=== PATIENT | female | born 1955 | race American Indian/Alaskan Native ===

== ENCOUNTER 2016-09-03 19:12 | Emergency (ER) | payer MEDICAID ==
[2016-09-03 19:40] VITALS: BMI 16.8
[2016-09-03] MEDS ORDERED: Albuterol-Ipratrop 3 mg / 0.5 (3 ml) UD IH STA ×2 (20:01→21:37)
--- NOTE | 2016-09-03 20:06 | ED PDOC ---
Arrival/HPI - General Chief Complaint: Shortness Of Breath Time Seen by Provider: 09/03/16 19:40 Historian: Patient - History of Present Illness Narrative History of Present Illness (Text): 09/03/16 20:04 60 year old female whose past medical history includes COPD, lupus, HIV, presents to the emergency department with difficulty breathing, shortness of breath, since earlier today. Patient states she has been using her nebulizer treatments with no improvement. Denies chest pain. No known fever or chills. Time/Duration: 24 hours Symptom Onset: Gradual Symptom Course: Unchanged Modifying Factors (Text): None Past Medical History - Provider Review Nursing Documentation Reviewed: Yes - Cardiac Hx Cardiac Disorders: No - Pulmonary Hx Respiratory Disorders: Yes Hx Asthma: Yes Hx Bronchitis: Yes Hx Chronic Obstructive Pulmonary Disease (COPD): Yes - HEENT Hx HEENT Disorder: No - Renal Hx Renal Disorder: No - Endocrine/Metabolic Hx Endocrine Disorders: No Hx Systemic Lupus Erythematosus: Yes - Musculoskeletal/Rheumatological Hx Musculoskeletal Disorders: No - Gastrointestinal Hx Gastrointestinal Disorders: No - Psychiatric Hx Substance Use: Yes - Surgical History Hx Cholecystectomy: Yes Family/Social History - Physician Review Nursing Documentation Reviewed: Yes Family/Social History: Unknown Family HX Smoking Status: Heavy Smoker > 10 Cigarettes Daily Hx Alcohol Use: Yes Frequency of alcohol use: Daily Hx Substance Use: Yes Substance used: Marijuana Allergies/Home Meds Allergies/Adverse Reactions: Allergies No Known Allergies Allergy (Verified 09/03/16 19:40) Review of Systems - Physician Review All systems were reviewed & negative as marked: Yes - Review of Systems Constitutional: Other (No chills). absent: Fevers Respiratory: SOB Cardiovascular: absent: Chest Pain Physical Exam Vital Signs Reviewed: Yes Vital Signs Temp Pulse Resp BP Pulse Ox 09/03/16 21:41 97.8 F 89 17 121/73 97 09/03/16 19:41 98.6 F 85 16 113/68 100 09/03/16 19:13 98.6 F 85 16 113/68 100 Temperature: Afebrile Blood Pressure: Normal Pulse: Regular Respiratory Rate: Normal Appearance: Positive for: Well-Appearing, Non-Toxic, Comfortable Pain Distress: None Mental Status: Positive for: Alert and Oriented X 3 - Systems Exam Head: Present: Atraumatic, Normocephalic Pupils: Present: PERRL Extroacular Muscles: Present: EOMI Conjunctiva: Present: Normal Mouth: Present: Moist Mucous Membranes Neck: Present: Normal Range of Motion Respiratory/Chest: Present: Good Air Exchange, Wheezes, Decreased Breath Sounds. No: Respiratory Distress, Accessory Muscle Use Cardiovascular: Present: Regular Rate and Rhythm, Normal S1, S2. No: Murmurs Abdomen: Present: Normal Bowel Sounds. No: Tenderness, Distention, Peritoneal Signs Back: Present: Normal Inspection Upper Extremity: Present: Normal Inspection. No: Cyanosis, Edema Lower Extremity: Present: Normal Inspection. No: Edema Neurological: Present: GCS=15, CN II-XII Intact, Speech Normal Skin: Present: Warm, Dry, Normal Color. No: Rashes Psychiatric: Present: Alert, Oriented x 3, Normal Insight, Normal Concentration Medical Decision Making ED Course and Treatment: Impression: 60 year old female whose past medical history includes COPD, lupus, HIV, presents to the emergency department with difficulty breathing, shortness of breath, since earlier today. Differential Diagnosis included but are not limited to: Plan: -- EKG, CXR -- Duoneb, Solumedrol -- Labs -- Reassess and disposition Progress Notes: 09/03/16 21:48 EKG interpreted by me: NSR @ [address] bpm[address] Non-specific ST/T changes. 09/03/16 22:39 Chest X-ray interpreted by me: No acute process. 09/03/16 22:57 On re-evaluation, patient states that her breathing has improved markedly and is in no acute distress. I have discussed the results and plan with the patient , who expresses understanding. Patient in agreement with plan to be discharged home. Patient is stable for discharge. Patient was instructed to follow up with physician or return if symptoms worsen or new concerning symptoms arise. - Lab Interpretations Lab Results: 09/03/16 20:52 09/03/16 20:52 Lab Results 09/03/16 20:52: WBC 8.8, RBC 3.33 L, Hgb 10.8 L, Hct 32.6 L, MCV 97.9, MCH 32.4 , MCHC 33.1, RDW 15.5 H, Plt Count 431, MPV 9.0 09/03/16 20:52: Sodium 143, Potassium 3.8, Chloride 109 H, Carbon Dioxide 24, Anion Gap 14, BUN 6 L, Creatinine 0.7, Est GFR ( Amer) > 60, Est GFR (Non -Af Amer) > 60, Random Glucose 97, Calcium 9.4, Total Bilirubin 0.3, AST 44 H, ALT 29, Alkaline Phosphatase 183 H, Lactate Dehydrogenase 424, Total Creatine Kinase 105, Troponin I < 0.01, NT-Pro-B Natriuret Pep 87.9, Total Protein 7.6, Albumin 3.9, Globulin 3.7, Albumin/Globulin Ratio 1.1 09/03/16 20:52: PT 13.3 H, INR 1.23 H, APTT 31.3 H I have reviewed the lab results: Yes - RAD Interpretation Radiology Orders: 09/03/16 20:03 CHEST PORTABLE [RAD] Stat Production Line Technician: ED Physician - EKG Interpretation Interpreted by ED Physician: Yes Type: 12 lead EKG - Medication Orders Current Medication Orders: Discontinued Medications Albuterol/Ipratropium (Duoneb 3 Mg/0.5 Mg (3 Ml) Ud) 3 ml IH ONCE STA Stop: 09/03/16 20:02 Last Admin: 09/03/16 20:57 Dose: 3 ml Albuterol/Ipratropium (Duoneb 3 Mg/0.5 Mg (3 Ml) Ud) 3 ml IH ONCE STA Stop: 09/03/16 21:38 Methylprednisolone (Solu-Medrol) 125 mg IVP ONCE ONE Stop: 09/03/16 20:02 Last Admin: 09/03/16 20:57 Dose: 125 mg - Nicolleibe Statement The provider has reviewed the documentation as recorded by the Soniya Deal Provider Scribe Attestation: All medical record entries made by the Soniya were at my direction and personally dictated by me. I have reviewed the chart and agree that the record accurately reflects my personal performance of the history, physical exam, medical decision making, and the department course for this patient. I have also personally directed, reviewed, and agree with the discharge instructions and disposition. Disposition/Present on Arrival - Present on Arrival Any Indicators Present on Arrival: No History of DVT/PE: No History of Uncontrolled Diabetes: No Urinary Catheter: No History of Decub. Ulcer: No History Surgical Site Infection Following: None - Disposition Have Diagnosis and Disposition been Completed?: Yes Diagnosis: COPD (chronic obstructive pulmonary disease) Disposition: HOME/ ROUTINE Disposition Time: 22:54 Patient Plan: Discharge Patient Problems: Current Active Problems Problem Status Onset COPD (chronic obstructive pulmonary disease) Acute Condition: GOOD Discharge Instructions (ExitCare): COPD (Chronic Obstructive Pulmonary Disease ) (ED) Additional Instructions: Take meds as prescribed/follow up with your doctor this week Prescriptions: Albuterol 0.083% [Albuterol 0.083% Inhal Debbie (2.5 mg/3 ml) UD] 3 ml IH Q4 PRN # 1 pkg PRN Reason: Wheezing predniSONE [Prednisone] 40 mg PO DAILY #10 tab Albuterol HFA [Ventolin HFA 90 mcg/actuation (8 g)] 2 puff IH [id number] PRN #1 puff PRN Reason: Wheezing Referrals: Jony Bettencourt MD [Primary Care Provider] - Follow up with primary
[2016-09-03 21:03] LABS: HEMATOCRIT 32.6 % (36.0-48.0); MEAN CELL VOLUME 97.9 fL (80.0-105.0); MEAN CORPUSCULAR HEMOGLOBIN 32.4 pg (25.0-35.0); MEAN CORPUSCULAR HGB CONC 33.1 g/dl (31.0-37.0); RED CELL DISTRIBUTION WIDTH 15.5 % (11.5-14.5); WHITE BLOOD COUNT 8.8 10^3/ul (4.5-11.0)
[2016-09-03 21:15] LABS: ALB/GLOB RATIO 1.1 (1.1-1.8); ALKALINE PHOSPHATASE 183 U/L (38-133); ALT/SGPT 29 U/L (7-56); AST/SGOT 44 U/L (15-39); BILIRUBIN,TOTAL 0.3 mg/dL (0.2-1.3); BLOOD UREA NITROGEN 6 mg/dL (7-21); CALCIUM 9.4 mg/dL (8.4-10.5); CARBON DIOXIDE 24 mmol/L (21-33); CHLORIDE 109 mmol/L (98-107); GFR AFRICAN-AMERICAN > 60; GLUCOSE,RANDOM 97 mg/dL (70-110); POTASSIUM 3.8 mmol/L (3.6-5.0); SODIUM 143 mmol/L (132-148); TOTAL PROTEIN 7.6 g/dL (5.8-8.3)
[2016-09-03 21:16] LABS: INR 1.23 (0.93-1.08); PARTIAL THROMBOPLASTIN TIME 31.3 Seconds (23.7-30.8)
[2016-09-03 21:31] LABS: TROPONIN I < 0.01 ng/mL
[2016-09-03 21:42] VITALS: BP 121/73; TEMP 97.8
[2016-09-03 23:37] VITALS: PULSE 91; RESP 16; O2SAT 100
--- NOTE | 2016-09-04 08:39 | RAD ---
HISTORY: sob COMPARISON: No prior. FINDINGS: LUNGS: No active pulmonary disease. PLEURA: No significant pleural effusion identified, no pneumothorax apparent. CARDIOVASCULAR: Normal. OSSEOUS STRUCTURES: No significant abnormalities. VISUALIZED UPPER ABDOMEN: Normal. OTHER FINDINGS: None. IMPRESSION: No active disease.
--- NOTE | 2016-09-04 09:57 | CARD ---
APPROVED REPORT EKG Measurement Heart [id number] <Conclusion> Normal sinus rhythm STTW changes with inverted T wave V2 and biphasic T wave V3
== END 2016-09-03 23:39 | disposition home or self-care (01) ==
LOC: MERGE 19:12 → ED 19:12
DX: J44.9 Chronic obstructive pulmonary disease, unspecified (principal); F17.210 Nicotine dependence, cigarettes, uncomplicated
CPT/HCPCS: 71010; 80053; 82550; 83615; 83880; 84484; 85027; 85610; 85730; 93005; 96374; 99284; J2930